=== PATIENT | male | born 1955 | race African-American/Black ===

== ENCOUNTER 2019-01-14 18:25 | Emergency (ER) | payer OTHER ==
[~2019-01-14] VITALS: Ht 180.3 cm; Wt 103.9 kg
[2019-01-14 18:25] VITALS: BP 121/54
--- NOTE | 2019-01-14 18:30 | NUR ---
[id number] FRM HOME, SYNCOPE WHILE TAKING A SHOWER AT HOME, FEELING DIZZY AND WEAK. TO ER BED 1, HOOKED TO MONITOR, CHANGED TO GOWN, AT BEDSIDE, AWAITING MD SILVERIO
--- NOTE | 2019-01-14 18:43 | NUR ---
DR BROWN AT BEDSIDE
--- NOTE | 2019-01-14 19:20 | NUR ---
VICE PRESIDENT PLANNING AT BEDSIDE
[2019-01-14 19:26] LABS: BASOPHILS % (AUTO) 0.5 % (0.0-2.0); EOSINOPHILS % (AUTO) 1.8 % (0.0-6.0); HEMATOCRIT 41 % (39-51); HEMOGLOBIN 13.4 g/dL (13.5-17.5); LYMPHOCYTES # (AUTO) 1.1 /CMM (0.8-4.8); LYMPHOCYTES % (AUTO) 20.9 % (20.0-44.0); MEAN CORPUSCULAR HGB CONC 33 g/dl (31.0-36.0); MEAN CORPUSCULAR VOLUME 91 fL (80-96); MONOCYTES # (AUTO) 0.4 /CMM (0.1-1.30); NEUTROPHILS # (AUTO) 3.4 /CMM (1.8-8.9); NEUTROPHILS % (AUTO) 67.8 % (43.0-81.0); PLATELET COUNT (AUTO) 213 /CMM (150-450); RED BLOOD CELL COUNT(AUTO) 4.54 MIL/uL (4.5-6.0)
--- NOTE | 2019-01-14 19:27 | NUR ---
REPORT GIVEN TO SAKINA ZHOU FOR [facility]
[2019-01-14 19:37] LABS: CALCIUM, SERUM 9.9 mg/dL (8.5-10.1); CARBON DIOXIDE 29 mmol/L (21-32); CHLORIDE 101 mmol/L (98-107); CREATININE 1.6 mg/dL (0.6-1.3); GLUCOSE 87 mg/dL (74-106); POTASSIUM 4.5 mmol/L (3.5-5.1); SODIUM SERUM 127 mmol/L (136-145); UREA NITROGEN, BLOOD 48 mg/dL (7-18)
[2019-01-14 19:42] LABS: ALANINE AMINOTRANSFERASE 25 U/L (12-78); ALKALINE PHOSPHATASE 94 U/L (46-116); ASPARTATE AMINOTRANSFERASE 20 U/L (15-37); BILIRUBIN,DIRECT 0.1 mg/dL (0.0-0.2); BILIRUBIN,TOTAL 0.4 mg/dL (0.2-1.0); TOTAL PROTEIN, SERUM 7.3 g/dL (6.4-8.2)
--- NOTE | 2019-01-14 20:29 | NUR ---
PLACED INITIAL CALL TO [facility]. SPOKE WITH AMANDA
--- NOTE | 2019-01-14 20:30 | NUR ---
DR DHILLON ASSIGNED TO CASE FROM [place]
--- NOTE | 2019-01-14 21:43 | NUR ---
PT ACCEPTED AT [facility] ACCEPTING MD DR [place]IVER NUMBER FOR REPORT [phone]. AMBULANCE ETA [id number]
--- NOTE | 2019-01-14 22:13 | NUR ---
REPORT GIVEN TO DANNY ZHOU AT [facility]
== END 2019-01-14 22:26 | disposition short-term general hospital (02) ==
LOC: ER 18:27
DX: R55 Syncope and collapse (principal); E87.1 Hypo-osmolality and hyponatremia; D68.9 Coagulation defect, unspecified; I11.0 Hypertensive heart disease with heart failure; I50.9 Heart failure, unspecified; I48.91 Unspecified atrial fibrillation; Z96.651 Presence of right artificial knee joint; Z86.73 Personal history of transient ischemic attack (TIA), and cerebral infarction without residual deficits; Z86.718 Personal history of other venous thrombosis and embolism
CPT/HCPCS: 36415; 70450-TC; 71045-TC; 80048-TC; 80076-TC; 82962-TC; 83880; 84484-TC; 85025-TC; 85730-TC; 87081-TC